=== PATIENT | male | born 1975 | race Caucasian/White ===

== ENCOUNTER 2018-05-13 01:19 | Emergency (ER) | payer OTHER ==
[~2018-05-13] VITALS: Ht 170.2 cm; Wt 95.3 kg
[~2018-05-13 01:19] MED LIST: AZOR 5/20 MG TA1 TAB; CRESTOR5 MG
== END 2018-05-13 05:13 ==
LOC: ER 01:19
DX: R06.02 Shortness of breath (principal); F41.8 Other specified anxiety disorders